=== PATIENT | female | born 1995 | race African-American/Black ===

== ENCOUNTER 2017-04-05 19:10 | Emergency (ER) | payer BC ==
[~2017-04-05] VITALS: Ht 165.1 cm; Wt 58.0 kg
[2017-04-05 19:12] VITALS: BP 120/76; PULSE 95; RESP 14; TEMP 98.7; O2SAT 99
[2017-04-05] MEDS ORDERED: AUGM875T PO (19:48)
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
== END 2017-04-05 20:08 | disposition home or self-care (01) ==
LOC: NEPK 19:10
DX: S40.811A Abrasion of right upper arm, initial encounter (principal); Z87.09 Personal history of other diseases of the respiratory system; Z86.59 Personal history of other mental and behavioral disorders; Z87.39 Personal history of other diseases of the musculoskeletal system and connective tissue; W54.0XXA Bitten by dog, initial encounter
CPT/HCPCS: 99283